=== PATIENT | male | born 1985 | race Caucasian/White ===

== ENCOUNTER 2020-11-28 12:46 | Emergency (ER) | payer OTHER, SELFPAY ==
--- NOTE | 2020-11-28 13:25 | ED_ITS ---
HPI - General Adult General Chief complaint: General Medical Stated complaint: covid symptoms Time Seen by Provider: 11/28/20 13:09 Source: patient Mode of arrival: ambulatory Limitations: no limitations History of Present Illness HPI narrative: Patient presents to ED for COVID like symptoms. Sore throat and body aches for the past 2 days. Patient states no fever, chills, night sweats, loss of appetite, cough, chest pain, shortness of breath, or weakness. Onset (ago): minute(s) Related Data Allergies Allergy/AdvReac Type Severity Reaction Status Date / Time No Known Allergies Allergy Verified 08/31/20 10:04 Review of Systems Review of Systems: Yes all other systems are reviewed and are negative Constitutional: Constitutional: Reports as per HPI, Reports no additional constitutional complaints and Reports body ache(s) Eyes: Eyes: Reports as per HPI and Reports no additional eye complaints ENT: Reports system reviewed and no additional complaints, except as documented, Reports as per HPI and Reports sore throat Cardiovascular: Cardiovascular: Reports as per HPI and Reports no additional cardiovascular complaints Respiratory: Respiratory: Reports as per HPI and Reports no additional respiratory complaints Gastrointestinal: Gastrointestinal: Reports as per HPI and Reports no additional gastrointestinal complaints Genitourinary: Genitourinary: Reports no additional male genitourinary complaints and Reports as per HPI Musculoskeletal: Musculoskeletal: Reports no additional musculoskeletal complaints and Reports as per HPI Neurologic: Reports system reviewed and no additional complaints, except as documented and Reports as per HPI Psychiatric: Psychiatric: Reports no additional psychiatric complaints and Reports as per HPI PMFSH Past Medical History Medical History (Updated 11/28/20 @ 14:29 by MANDO Rueda) Stanford's esophagus GERD (gastroesophageal reflux disease) Hypercholesterolemia Surgical History History of tonsillectomy Family History Family History (Updated 08/31/20 @ 10:05 by ANÍBAL Joy) Father Hypertension Mother No problems noted. Paternal Aunt Breast cancer Paternal Uncle Throat cancer Bone cancer Social History Social History Advance Directives: No Advance Directives Information Provided: No Physical Exam Vital Signs: Vital Signs: Last Vital Signs Temp 98.6 F 11/28/20 13:42 Pulse 83 11/28/20 13:42 Resp 18 11/28/20 13:42 BP 136/97 H 11/28/20 13:42 Pulse Ox 97 11/28/20 13:42 Body Mass Index 29.6 Const: General: cooperative, healthy appearing, comfortable, no acute distress, well developed, alert, awake and Physically active Orientation/consciousness: patient oriented x3 HENMT: Head: Yes normal to inspection and Yes No palpable skull fracture present Throat: Yes posterior oropharynx normal, Yes tonsils normal and Yes uvula midline Eyes: General: appearance normal, both eyes and all related structures Neck: Neck: Yes normal visual inspection, Yes full ROM, Yes no lymphadenopathy, Yes no meningeal signs, Yes trachea midline, Yes supple and No tender Chest: Chest palpation & inspection: normal inspection of the chest and normal palpation of entire chest wall Resp: Effort & Inspection: normal respiratory effort and able to speak in complete sentences Auscultation: clear to auscultation bilaterally Cardio: Jugular venous distension: no JVD Heart sounds: S1 normal heart sound present and S2 normal heart sound present GI: Inspection: Yes normal to inspection and No abdominal wall ecchymosis Palpation (GI): Soft to palpation, not firm, nontender, no guarding and not rigid : General: No CVA tenderness and Yes no CVA tenderness Back/Spine/Pelvis: Back: no CVA tenderness, No CVA tenderness and No back tenderness Skin: General skin exam: no rashes or lesions noted and elasticity normal Neuro: General: patient oriented x3, no meningeal signs and CN's II-XI intact bilaterally Cranial nerves: Yes CN's II-XII intact bilaterally Extrem: General: Yes full ROM Psych: Appearance: grossly normal, well kempt and not disheveled Course Course Course Narrative: Patient will be swabbed for rapid strep and COVID Reevaluation(s) Reevaluation #1: Patient rather be discharging call with the results. Patient educated on self-isolation. Time: 14:25 Reevaluation #2: Patient called with results and was informed he was negative. Time: 20:00 Medical Decision Making [facility] Narrative Medical decision making narrative: Viral syndrome. Viral pharyngitis Lab Data Labs: Lab Results 11/28/20 Range/Units 13:40 Coronavirus (PCR) NEGATIVE (Negative) Influenza Type A (PCR) NEGATIVE (Negative) Influenza Type B (PCR) NEGATIVE (Negative) RSV RNA Qual (PCR) NEGATIVE (Negative) Discharge Plan Discharge Clinical Impression: Acute viral pharyngitis, Acute viral syndrome Patient Disposition: Home, Self-Care Instructions: Pharyngitis (ED), Viral Syndrome (ED) Additional Instructions: Return to the ED immediately for any chest pain, shortness of breath, weakness, inability tolerate solid foods/weakness, coughing up blood, calf pain, swelling of lower extremities, or any other concerning symptoms. If COVID test come back recommend 14 days self-isolation. His symptoms worsen in your initial COVID test come back negative you can either quarantine or repeat COVID test in 72 hours days. Stand Alone Forms: Work/School Release Interventions: ED Discharge Assessment Last Done: 11/28/20 14:37 Discharge Date/Time: 11/28/20 14:59 Print Language: German
[2020-11-28 13:42] VITALS: BP 136/97; PULSE 83; RESP 18; TEMP 37; O2SAT 97; BMI 29.6
[2020-11-28 14:49] LABS: Influenza A PCR NEGATIVE (Negative); Influenza B PCR NEGATIVE (Negative); Resp Syncy Virus RNA Qual PCR NEGATIVE (Negative); SARS COV2 PCR INHOUSE NEGATIVE (Negative)
== END 2020-11-28 14:59 | disposition home or self-care (01) ==
PROVIDERS: Physician Assistant; Emergency Provider Internal Medicine; PCP Internal Medicine
DX: B34.9 Viral infection, unspecified (principal); J02.8 Acute pharyngitis due to other specified organisms; Z20.822 Contact with and (suspected) exposure to COVID-19
CPT/HCPCS: 0241U; 36415; 87071; 87147; 87880; 99283

== ENCOUNTER 2020-12-20 15:51 | Emergency (ER) | payer BC, SELFPAY ==
[2020-12-20 17:21] VITALS: BP 155/91; PULSE 86; RESP 16; TEMP 36.8; O2SAT 94; BMI 31.0
[2020-12-20 18:30] LABS: COVID-19 Test Negative (Negative)
--- NOTE | 2020-12-20 18:33 | ED.GENADULT ---
HPI - General Adult General Chief complaint: General Medical Stated complaint: Covid symptoms Time Seen by Provider: 12/20/20 17:30 Source: patient Mode of arrival: ambulatory Limitations: no limitations History of Present Illness HPI narrative: 35-year-old male with reports of vomiting and diarrhea with subjective fever yesterday. The patient tells me that his vomiting is resolved today and he has had no fever today. He has had 2 episodes of diarrhea this morning. He denies any abdominal pain, cough, shortness of breath, chest pain, neck pain, joint pain and rash. Onset (ago): day(s) Related Data Allergies Allergy/AdvReac Type Severity Reaction Status Date / Time No Known Allergies Allergy Verified 08/31/20 10:04 Review of Systems Review of Systems: Yes all other systems are reviewed and are negative Constitutional: Constitutional: Reports no additional constitutional complaints, Denies body ache(s), Denies chills, Reports fever(s) (Subjective), Denies headache(s) and Denies weakness Eyes: Eyes: Reports no additional eye complaints and Denies change in vision ENT: Reports system reviewed and no additional complaints, except as documented, Denies dizziness, Denies headache(s), Denies nasal congestion, Denies nasal discharge and Denies neck pain Cardiovascular: Cardiovascular: Reports no additional cardiovascular complaints, Denies chest pain, Denies leg edema and Denies dyspnea Respiratory: Respiratory: Reports no additional respiratory complaints, Denies cough and Denies dyspnea Gastrointestinal: Gastrointestinal: Reports no additional gastrointestinal complaints, Denies abdominal pain, Reports diarrhea, Denies nausea and Reports vomiting Genitourinary: Genitourinary: Denies urinary incontinence Musculoskeletal: Musculoskeletal: Reports no additional musculoskeletal complaints, Denies back pain, Denies arthralgias, Denies joint swelling, Denies neck pain, Denies numbness and Denies tingling Integumentary/Breasts: Skin/Breast: Reports system reviewed and no additional complaints, except as docu and Denies rash Neurologic: Reports system reviewed and no additional complaints, except as documented, Denies Abnormal speech present, Denies dizziness, Denies headache(s), Denies numbness, Denies tingling and Denies weakness PMFSH Past Medical History Attestation statement: The following information was validated with the patient. Source: old records reviewed and nursing notes reviewed Medical History Stanford's esophagus GERD (gastroesophageal reflux disease) Hypercholesterolemia Surgical History History of tonsillectomy Family History Family History Father Hypertension Mother No problems noted. Paternal Aunt Breast cancer Paternal Uncle Throat cancer Bone cancer Social History Social History Advance Directives: No Advance Directives Information Provided: Yes Physical Exam Vital Signs: Vital Signs: Last Vital Signs Temp 9805 F H 12/20/20 18:37 Pulse 80 12/20/20 18:37 Resp 16 12/20/20 18:37 BP 140/62 H 12/20/20 18:37 Pulse Ox 97 12/20/20 18:37 Body Mass Index 31.0 Const: General: cooperative, healthy appearing, comfortable and no acute distress Orientation/consciousness: patient oriented x3 Limitations: no limitations HENMT: Head: Yes normal to inspection Ears: hearing grossly normal bilaterally General nose exam: Normal external nose present Face and sinus: Yes normal facial exam Mouth: Normal oral and palatal mucosa present Throat: Yes posterior oropharynx normal Eyes: General: appearance normal, both eyes and all related structures Pupils: Equal, round and reactive pupils present Neck: Neck: Yes normal visual inspection Chest: Chest palpation & inspection: normal inspection of the chest Resp: Effort & Inspection: normal respiratory effort Auscultation: clear to auscultation bilaterally Cardio: Rate: regular rate Rhythm: regular rhythm Peripheral pulses: Peripheral pulses 2+ throughout GI: Inspection: Yes normal to inspection Palpation (GI): Soft to palpation and nontender Auscultation: normal bowel sounds Back/Spine/Pelvis: Thoracic/Lumbar Spine: thoracic and lumbar spine normal to inspection Skin: General skin exam: no rashes or lesions noted Neuro: General: patient oriented x3, no focal motor deficits and normal sensation to monofilament Cranial nerves: Yes Equal, round and reactive pupils present Cognition (Neuro): normal cognition Speech: No Abnormal speech present Gait exam (Neuro): Normal gait present Motor exam (neuro): 5/5 motor strength present throughout Extrem: General: Yes normal to inspection, Yes no pedal edema and Yes no calf tenderness Course Course Course Narrative: 35-year-old male here with vomiting and diarrhea since yesterday with improving symptoms. Requesting COVID test for work. No focal abdominal pain. Vital signs are stable. No vomiting today. Had 2 episodes of diarrhea a day this morning but otherwise symptoms are overall improving. Will send COVID screen. 1835-COVID screen negative. Likely viral. Reviewed worrisome signs and symptoms of when to return to the emergency department. Comfortable discharge home. Medical Decision Making Medical Records Medical records reviewed: Yes I reviewed the patient's medical records. Lab Data Lab results reviewed: Yes I reviewed the patient's lab results. Labs: Lab Results 12/20/20 Range/Units 18:07 COVID-19 ([facility]) Negative (Negative) COVID-19 Clin Com See Note Discharge Plan Discharge Clinical Impression: Acute viral syndrome Patient Disposition: Home, Self-Care Instructions: Viral Syndrome (ED) Additional Instructions: Your COVID test today was negative You have a viral infection See attached work note Start with clear liquids and advance diet as tolerated Referrals: Aliyah Thomas MD [Primary Care Provider] - 2 days Stand Alone Forms: Work/School Release Interventions: ED Discharge Assessment Last Done: 12/20/20 18:41 Discharge Date/Time: 12/20/20 18:44
[2020-12-20 18:37] VITALS: BP 140/62; PULSE 80; RESP 16; TEMP 5429.4; TEMP 9805; O2SAT 97
== END 2020-12-20 18:44 | disposition home or self-care (01) ==
PROVIDERS: Nurse Practitioner Family; Emergency Provider Emergency Medicine; PCP Internal Medicine
DX: B34.9 Viral infection, unspecified (principal); Z20.822 Contact with and (suspected) exposure to COVID-19; R19.7 Diarrhea, unspecified
CPT/HCPCS: 36415; 87635; 99283

== ENCOUNTER 2021-03-02 11:25 | Emergency (ER) | payer BC, SELFPAY ==
[2021-03-02 11:39] VITALS: BP 161/96; PULSE 100; RESP 16; TEMP 36.6; O2SAT 97; BMI 33.5
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
[2021-03-02 12:54] VITALS: BP 141/95; PULSE 92; RESP 17; TEMP 36.8; O2SAT 97
[2021-03-02 13:34] LABS: COVID-19 Test Negative (Negative)
== END 2021-03-02 13:53 | disposition home or self-care (01) ==
PROVIDERS: Physician Assistant Medical; Emergency Provider Emergency Medicine; PCP Internal Medicine
DX: Z20.822 Contact with and (suspected) exposure to COVID-19 (principal)
CPT/HCPCS: 36415; 87635; 99283

== ENCOUNTER 2021-03-05 11:44 | Outpatient (REF) | payer SELFPAY | END 2021-03-05 11:45 | disposition home or self-care (01) | LOC: HO.LAB 11:44 | PROVIDERS: PCP Internal Medicine; Visit Provider Internal Medicine | DX: Z20.822 Contact with and (suspected) exposure to COVID-19 (principal) | CPT/HCPCS: C9803; U0003; U0005 ==

== ENCOUNTER → 2022-02-07 10:23 | Outpatient (BNVA) | payer SELFPAY | PROVIDERS: PCP Internal Medicine; Visit Provider Internal Medicine | DX: Z02.79 Encounter for issue of other medical certificate (principal) ==

== ENCOUNTER 2022-05-06 14:00 | Emergency (ER) | payer MEDICAID, SELFPAY ==
[2022-05-06 14:20] VITALS: BP 136/94; PULSE 95; O2SAT 95
[2022-05-06 14:35] VITALS: BP 126/88; PULSE 87; RESP 18; TEMP 36.7; O2SAT 98; BMI 32.3
[2022-05-06] MEDS: Acetaminophen 325 MG TABLET 650 MG PO (14:42)
[2022-05-06 19:53] VITALS: BP 122/80; PULSE 90; RESP 20; TEMP 36.7; O2SAT 100
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
[2022-05-06 20:22] VITALS: BP 134/88; PULSE 104; RESP 18; TEMP 37.1; O2SAT 97
[2022-05-06] MEDS: Diphth,Pertus(ACell),Tet Adult 0.5 ML SYRINGE IM (20:52)
[2022-05-06] MEDS: Amoxicillin/Potassium Clav 875 MG TABLET PO (20:53)
[2022-05-06] MEDS: Lidocaine HCl 1 % MPF 2 ML VIAL INFILTRATI (20:56)
--- NOTE | 2022-05-06 20:57 | PC.NURSE ---
patient provided with discharge packet at the time of discharge. Patient verbalized understanding of discharge instructions and stated had no additional questions
== END 2022-05-06 20:59 | disposition home or self-care (01) ==
PROVIDERS: Emergency Provider Internal Medicine; PCP Internal Medicine
DX: S01.511A Laceration without foreign body of lip, initial encounter (principal); S40.812A Abrasion of left upper arm, initial encounter; R51.9 Headache, unspecified; Y29.XXXA Contact with blunt object, undetermined intent, initial encounter; Y93.9 Activity, unspecified; Y92.9 Unspecified place or not applicable; Y99.9 Unspecified external cause status; Z79.899 Other long term (current) drug therapy
CPT/HCPCS: 12013; 90471; 90715; 99284